=== PATIENT | male | born 1985 | race Hispanic/Latino ===

== ENCOUNTER → 2019-12-05 | Outpatient (CLI) | payer OTHER | END | disposition home or self-care (01) | LOC: SHCH 12:58 | PROVIDERS: ATTEND Internal Medicine Cardiovascular Disease | DX: I34.0 Nonrheumatic mitral (valve) insufficiency (principal) | CPT/HCPCS: 93306; 93356 ==

== ENCOUNTER 2020-03-19 06:16 | Observation (INO) | payer OTHER ==
[2020-03-18 10:59] LABS: BASOPHILS % (AUTO) 0.3 % (0.0-5.0); HEMATOCRIT 46.3 % (42-54); LYMPHOCYTES % (AUTO) 45.6 % (21.0-51.0); MEAN CORPUSCULAR HGB CONC 33.9 g/dL (32.0-36.0); MEAN CORPUSCULAR VOLUME 91.5 fL (79-99); MONOCYTES % (AUTO) 7.3 % (3.0-13.0); NEUTROPHILS % (AUTO) 44.5 % (40.0-77.0); PLATELET COUNT (AUTO) 248 K/uL (130-400); RED BLOOD CELL COUNT(AUTO) 5.06 MIL/uL (4.50-6.20); RED CELL DISTRIBUTION WIDTH 11.9 % (11.0-15.5); WHITE BLOOD COUNT (AUTO) 5.9 K/uL (4.8-10.8)
[2020-03-18 11:02] LABS: POTASSIUM 3.9 mmol/L (3.5-5.1)
[2020-03-18 12:06] LABS: INR 0.95 (0.85-1.15); PROTHROMBIN TIME 10.2 SEC (9.6-11.6)
[2020-03-18 12:07] LABS: PARTIAL THROMBOPLASTIN TIME 28.1 SEC (26.3-35.5)
[2020-03-19] VITALS (14 sets, daily range): BP systolic 108–165; BP diastolic 58–96
[~2020-03-19] VITALS: Ht 162.6 cm; Wt 64.7 kg
[~2020-03-19 06:16] MED LIST: CETRIZINE PO; CLON0.1T PO; CLON1TAB23 PO; LORA-192 PO; METO-408 PO; PANT40TA PO
[2020-03-19] MEDS: SODIUM CHLORIDE 0.9% 1000ML 1,000 ML IV SCH ×2 (07:18→17:55)
[2020-03-19] MEDS ORDERED: HEPARIN SODIUM 1000UNIT/ML 10ML VIAL ONE (07:40)
[2020-03-19] MEDS ORDERED: MIDAZOLAM HCL 1 MG/ML 2ML VIAL ONE ×10 (07:41→10:42)
[2020-03-19] MEDS ORDERED: MEPERIDINE-PF 25 MG/ML SYG ONE ×9 (07:41→10:42)
[2020-03-19] MEDS ORDERED: LIDOCAINE HCL 2% 20ML ONE (07:41)
[2020-03-19] MEDS ORDERED: ISOPROTERENOL HCL 0.2 MG/ML AMP/VIAL/BAG ONE (08:28)
[2020-03-19] MEDS ORDERED: FLUMAZENIL 0.1MG/1ML 5ML VIAL IV ONE (11:14)
[2020-03-19 11:15] LABS: ABG BASE EXCESS -4.3 mmol/L (-2.0-3.0); ABG HCO3 30.6 mmol/L (21.0-28.0); ABG OXYGEN SATURATION 93.8 % (95.0-99.0); ABG PCO2 122 mmHg (35-48)
[2020-03-19] MEDS: CLONIDINE HCL 0.1 MG TABLET PO SCH ×4 (12:33→20:33)
[2020-03-19 12:56] LABS: ABG BASE EXCESS -0.6 mmol/L (-2.0-3.0); ABG HCO3 25.7 mmol/L (21.0-28.0); ABG OXYGEN SATURATION 95.2 % (95.0-99.0); ABG PCO2 49 mmHg (35-48)
[2020-03-19] MEDS ORDERED: LORAZEPAM 0.5 MG TABLET PO PRN (13:30)
[2020-03-19 14:20] LABS: CREATININE 0.9 mg/dL (0.5-1.5); MAGNESIUM 1.8 mg/dL (1.80-2.40); THYROID STIMULATING HORMONE 1.55 uIU/mL (0.36-3.74)
[2020-03-19] MEDS ORDERED: CLONAZEPAM 0.5 MG TABLET PO PRN (18:15)
[2020-03-20 03:51] VITALS: BP 107/67
[2020-03-20 05:30] LABS: HEMATOCRIT 41.1 % (42-54); MEAN CORPUSCULAR HEMOGLOBIN 30.9 pg (27.0-33.0); MEAN CORPUSCULAR HGB CONC 33.6 g/dL (32.0-36.0); MEAN CORPUSCULAR VOLUME 91.9 fL (79-99); RED BLOOD CELL COUNT(AUTO) 4.47 MIL/uL (4.50-6.20); RED CELL DISTRIBUTION WIDTH 12.2 % (11.0-15.5); WHITE BLOOD COUNT (AUTO) 9.1 K/uL (4.8-10.8)
[2020-03-20] MEDS: PANTOPRAZOLE SODIUM 40 MG TABLET.DR PO SCH ×2 (06:06→08:29)
[2020-03-20 06:15] LABS: POTASSIUM 3.9 mmol/L (3.5-5.1); THYROID STIMULATING HORMONE 1.22 uIU/mL (0.36-3.74)
[2020-03-20 08:00] VITALS: BP 112/63
[2020-03-20] MEDS ORDERED: CLONAZEPAM 0.5 MG TABLET PO PRN (08:15)
[2020-03-20] MEDS ORDERED: LORAZEPAM 0.5 MG TABLET PO PRN (08:15)
[2020-03-20] MEDS: CLONIDINE HCL 0.1 MG TABLET PO SCH (08:30)
[2020-03-20 11:13] VITALS: BP 122/75
== END 2020-03-20 13:00 | disposition home or self-care (01) ==
LOC: DAH 06:16 → DAHIP 06:17 → DAH 06:17 → 2DH 12:33 → 4CH 19:10
PROVIDERS: ADMIT Internal Medicine; ATTEND Internal Medicine
DX: I47.1 Supraventricular tachycardia (principal); F41.1 Generalized anxiety disorder; F41.0 Panic disorder [episodic paroxysmal anxiety]; I10 Essential (primary) hypertension; G47.31 Primary central sleep apnea; F13.20 Sedative, hypnotic or anxiolytic dependence, uncomplicated; Z79.899 Other long term (current) drug therapy; Z88.0 Allergy status to penicillin; Z91.040 Latex allergy status
CPT/HCPCS: 36415 ×3; 36600 ×2; 80048 ×3; 82803 ×2; 83735; 84443 ×2; 85025; 85027; 85610; 85730; 93005; 93613; 93621; 93623; 93653; A4215; A4216; A4221; A4222; A4223 ×3; A4606; A4649 ×2; A4663; C1730 ×4; C1731; C1732; C1894 ×5; G0378 ×25; J1644 ×3; J2175 ×9; J2250 ×10; J3490 ×3; J7030; 94760; 99156; 99157